=== PATIENT | female | born 1955 | race Caucasian/White ===

== ENCOUNTER → 2019-12-24 14:07 | Outpatient (CLI) | payer OTHER, SELFPAY ==
[2019-12-24 15:22] LABS: Add Manual Diff / Slide Review NO; Basophils Absolute Auto 0 /uL (0-100); Basophils Percent Auto 0.6 % (0-2); Eosinophils Absolute Auto 100 /uL (0-450); Eosinophils Percent Auto 1.3 % (2-4); Hematocrit 36.8 % (36-46); Hemoglobin 13.1 g/dL (12.0-16.0); Lymphocytes Absolute Auto 1600 /uL (1100-4500); Mean Corpuscular HGB Conc 35.7 % (30-36); Mean Corpuscular Hemoglobin 31.9 PG (26-34); Mean Corpuscular Volume 89.4 fL (80-100); Monocytes Absolute Auto 300 /uL (0-900); Monocytes Percent Auto 5.8 % (3-14); Neutrophils Absolute Auto 2500 /uL (1500-7000); Neutrophils Percent Auto 56.3 % (50-75); Platelet Count 265 X10^3/uL (150-400); Red Blood Cell Count 4.11 X10^6/uL (4.0-5.2); White Blood Cell Count 4.3 X10^3/uL (4.5-11.0)
[2019-12-24 16:53] LABS: Alanine Aminotransferase 7 IU/L (<35); Albumin 4.3 g/dL (3.5-5.0); Albumin Globulin Ratio 1.8 (1.0-2.8); Alkaline Phosphatase 52 U/L (38-126); Aspartate Aminotransferase 14 IU/L (14-36); BUN Creatinine Ratio 21.4 (6-22); Bilirubin Total 0.4 mg/dL (0.2-1.3); Blood Urea Nitrogen 12 mg/dL (7-17); Calcium 9.5 mg/dL (8.4-10.2); Carbon Dioxide 24 mmol/L (22-32); Chloride 102 mmol/L (98-107); Estimated Glomerular Filt Rate > 60.0 mL/min (>60); Globulin 2.4 g/dL (1.7-4.1); Glucose 108 mg/dL (80-110); HEMOLYSIS < 15 (0-50); Potassium 4.4 mmol/L (3.4-5.1); Sodium 134 mmol/L (137-145); Total Protein 6.7 g/dL (6.3-8.2)
[2019-12-24 17:23] LABS: TSH w/ Reflex to FT4 0.33 uIU/mL (0.47-4.68)
[2019-12-24 18:07] LABS: Free T4, Direct Thyroxine 1.24 ng/dL (0.78-2.19)
== END ==
PROVIDERS: PCP Physician Assistant; Referring Provider Physician Assistant; Visit Provider Physician Assistant
DX: R63.4 Abnormal weight loss (principal)
CPT/HCPCS: 36415; 80053; 84439; 84443; 85025

== ENCOUNTER → 2020-03-30 10:11 | Outpatient (CLI) | payer OTHER, SELFPAY ==
--- NOTE | 2020-03-30 | DI.NM.S_ITS ---
PROCEDURE: NM BONE SCAN WHOLE BODY RADIOPHARMACEUTICAL: 20.9 mCi Tc-99m MDP IV. INDICATIONS: Other specific arthropathies, not elsewhere classi TECHNIQUE: Delayed whole-body scintigrams were obtained approximately 3-4 hours after intravenous injection of radiotracer. Anterior and posterior views were acquired from vertex to feet. COMPARISON: None. FINDINGS: No suspicious tracer activity seen. There is physiologic uptake present within the bladder and kidneys. L5-S1 probable discogenic tracer uptake noted. Bilateral periarticular knee and ankle tracer uptake is probably degenerative IMPRESSION: No suspicious tracer activity Bilateral knee and ankle arthritic tracer uptake. Dictated by: Josh Gregory M.D. on 03/30/2020 at 15:42 Approved by: Josh Gregory M.D. on 03/30/2020 at 15:44
== END ==
PROVIDERS: PCP Physician Assistant; Referring Provider Orthopaedic Surgery; Visit Provider Orthopaedic Surgery
DX: M12.88 Other specific arthropathies, not elsewhere classified, other specified site (principal)
CPT/HCPCS: 78306; A9503

== ENCOUNTER → 2020-04-21 10:20 | Outpatient (CLI) | payer OTHER, SELFPAY ==
--- NOTE | 2020-04-21 10:23 | DI.CT.S_ITS ---
PROCEDURE: CT CHEST ABD PEL W CON INDICATIONS: Abnormal weight loss TECHNIQUE: After the administration of oral and intravenous contrast, 5 mm thick sections acquired from the lung apices to the symphysis. 5 mm coronal and sagittal reformats were performed, with additional 7 mm coronal MIP reformats through the lungs. For radiation dose reduction, the following was used: automated exposure control, adjustment of mA and/or kV according to patient size. COMPARISON: None. FINDINGS: Image quality: Excellent. CHEST: Lungs and pleura: No acute airspace opacities. There is mild linear scarring or atelectasis at each lung base. No pulmonary mass lesion is found No pleural effusions or pneumothorax. Central and peripheral airways appear patent and normal in caliber. Mediastinum: Heart size is normal. No pericardial effusion. No mediastinal or hilar adenopathy by size criteria. Thoracic aorta and central pulmonary arteries are normal in size. Esophagus is normal in caliber. No hiatal hernia. Chest wall: No axillary or supraclavicular adenopathy by size criteria. Thyroid gland appears normal . ABDOMEN: Solid organs: Liver is normal in size and enhancement. Gallbladder appears normal . Biliary system is non dilated. Pancreas enhances normally. Spleen is normal in size and enhancement. No adrenal nodules. Kidneys demonstrate normal size and enhancement, without hydronephrosis. Peritoneum and bowel: Bowel loops demonstrate normal wall thickness and caliber. No free fluid or air. Nodes and vessels: No retroperitoneal or mesenteric adenopathy by size criteria. Aorta and inferior vena cava are normal in size. Miscellaneous: No ventral hernias. PELVIS: Genitourinary: Bladder wall thickness is normal. Miscellaneous: No inguinal hernias or adenopathy. Bones: No suspicious bony lesions. No vertebral body compression fractures. Lumbosacral spine fusion procedure devices show no evidence of disruption or adjacent inflammation. IMPRESSION: A source of unexplained weight loss is not identified. No underlying infection or neoplasm is found. Lumbosacral spine fusion procedure, without evidence of device loosening or disruption, or adjacent inflammatory change. Dictated by: Nadir Echevarria M.D. on 04/21/2020 at 14:01 Approved by: Nadir Echevarria M.D. on 04/21/2020 at 14:14
[2020-04-21 10:52] LABS: BUN Creatinine Ratio 20.6 (6-22); Blood Urea Nitrogen 13 mg/dL (7-17); Calcium 9.3 mg/dL (8.4-10.2); Carbon Dioxide 29 mmol/L (22-32); Chloride 103 mmol/L (98-107); Estimated Glomerular Filt Rate > 60.0 mL/min (>60); Glucose 126 mg/dL (80-110); HEMOLYSIS < 15 (0-50); Sodium 140 mmol/L (137-145)
== END ==
PROVIDERS: PCP Physician Assistant; Referring Provider Physician Assistant; Visit Provider Physician Assistant
DX: R63.4 Abnormal weight loss (principal); Z98.1 Arthrodesis status
CPT/HCPCS: 36415; 71260; 74177; 80048; Q9967

== ENCOUNTER → 2020-07-09 15:20 | Outpatient (CLI) | payer OTHER, SELFPAY ==
--- NOTE | 2020-07-09 15:26 | DI.RAD.S_ITS ---
PROCEDURE: XR CERVICAL SPINE 4V OR 5V INDICATIONS: BACK PAIN TECHNIQUE: 4 views of the cervical spine were acquired, including flexion and extension views in the lateral projection. COMPARISON: [facility], ERASMO, XR LUMBAR SPINE MIN 4V, 07/09/2020, 15:31. [facility] [place], CR, SPINE CERVICAL MIN 4VW, 12/11/2016, 14:14. FINDINGS: Evaluation is partially limited by bony tail artifact. Bones: Postoperative changes are seen, with an anteriorly placed fusion device at the C4-C5 level. No findings of hardware failure or hardware loosening are seen. There is vertebral body fusion seen at C5-C6 and C6-C7. No displaced fractures are seen. No suspicious lytic or blastic lesions are seen. On the neutral image, the AP bony alignment is within normal limits. On flexion and extension views, there is highly limited range of motion observed, without abnormal subluxation. Soft tissues: Prevertebral soft tissues are normal in thickness. The visualized lung apices are unremarkable. IMPRESSION: Unremarkable postoperative fusion changes are seen. Highly limited range of motion, without abnormal subluxation. Dictated by: Roscoe Huffman M.D. on 07/09/2020 at 15:48 Approved by: Roscoe Huffman M.D. on 07/09/2020 at 15:50
--- NOTE | 2020-07-09 15:26 | DI.RAD.S_ITS ---
PROCEDURE: XR LUMBAR SPINE MIN 4V INDICATIONS: BACK PAIN TECHNIQUE: 4 views of the lumbar spine were acquired, including flexion and extension views. COMPARISON: [facility] [place], ERASMO, SPINE CERVICAL MIN 4VW, 12/11/2016, 14:14. [facility] [place], , SPINE LUMB MIN 4VW, 12/11/2016, 14:22. [facility], CT, L-SPINE WITHOUT CONTRAST, 12/14/2016, 9:33. [facility], [place], NM BONE SCAN WHOLE BODY, 03/30/2020, 14:36. [facility], CR, XR CERVICAL SPINE 4V OR 5V, 07/09/2020, 15:31. FINDINGS: Bones: Postoperative changes are seen, with bilateral pedicle screws at the L5 and S1 levels. The screws appear well placed. Vertical fixation rods are seen. Disc spacers are seen No findings of hardware failure or hardware loosening are seen. There has been removal of portions of the posterior elements. Bone grafting material is noted. 5 nonrib-bearing, lumbar type vertebral bodies are seen. No acute appearing fractures are seen. No suspicious lytic or blastic lesions can be seen. Mild dextroconvex thoracolumbar scoliotic curvature is seen. On flexion-extension views, there is limited range of motion, without abnormal subluxation. No abnormal motion can be seen within the fused region. Soft tissues: Overlying bowel gas pattern is normal. No suspicious soft tissue calcifications. IMPRESSION: Unremarkable L5-S1 postoperative hardware. Limited range of motion, without abnormal subluxation. Mild dextroconvex thoracolumbar scoliotic curvature. Dictated by: Roscoe Huffman M.D. on 07/09/2020 at 15:46 Approved by: Roscoe Huffman M.D. on 07/09/2020 at 15:48
== END ==
PROVIDERS: PCP Physician Assistant; Referring Provider Pain Medicine Pain Medicine; Visit Provider Pain Medicine Pain Medicine
DX: M96.1 Postlaminectomy syndrome, not elsewhere classified (principal); Z98.1 Arthrodesis status
CPT/HCPCS: 72050; 72110

== ENCOUNTER → 2021-04-21 14:03 | Outpatient (CLI) | payer OTHER, SELFPAY ==
[2021-04-21 14:39] LABS: Add Manual Diff / Slide Review NO; Basophils Absolute Auto 0 /uL (0-100); Basophils Percent Auto 1.3 % (0-2); Eosinophils Absolute Auto 100 /uL (0-450); Eosinophils Percent Auto 1.6 % (2-4); Hematocrit 38.8 % (36-46); Hemoglobin 13.4 g/dL (12.0-16.0); Lymphocytes Absolute Auto 1300 /uL (1100-4500); Lymphocytes Percent Auto 43.3 % (25-40); Mean Corpuscular HGB Conc 34.6 % (30-36); Mean Corpuscular Hemoglobin 31.2 PG (26-34); Mean Corpuscular Volume 90.2 fL (80-100); Monocytes Absolute Auto 200 /uL (0-900); Monocytes Percent Auto 5.7 % (3-14); Neutrophils Absolute Auto 1500 /uL (1500-7000); Neutrophils Percent Auto 48.1 % (50-75); Platelet Count 230 X10^3/uL (150-400); Red Blood Cell Count 4.31 X10^6/uL (4.0-5.2); Red Cell Distribution Width 12.5 % (11.6-14.8); White Blood Cell Count 3.1 X10^3/uL (4.5-11.0)
[2021-04-21 14:53] LABS: Alanine Aminotransferase 14 IU/L (<35); Albumin 4.4 g/dL (3.5-5.0); Albumin Globulin Ratio 1.7 (1.0-2.8); Alkaline Phosphatase 47 U/L (38-126); Aspartate Aminotransferase 19 IU/L (14-36); BUN Creatinine Ratio 19.3 (6-22); Bilirubin Total 0.5 mg/dL (0.2-1.3); Blood Urea Nitrogen 11 mg/dL (7-17); C-Reactive Protein Quant < 0.5 mg/dL (<1.0); Calcium 9.1 mg/dL (8.4-10.2); Carbon Dioxide 27 mmol/L (22-32); Chloride 101 mmol/L (98-107); Estimated Glomerular Filt Rate > 60.0 mL/min (>60); Globulin 2.6 g/dL (1.7-4.1); Glucose 95 mg/dL (80-110); HEMOLYSIS < 15 (0-50); Sodium 138 mmol/L (137-145)
[2021-04-21 14:58] LABS: Erythrocyte Sedimentation Rate 5 MM/HR (0-20)
[2021-04-21 15:05] LABS: Free T4, Direct Thyroxine 1.31 ng/dL (0.78-2.19)
[2021-04-21 15:19] LABS: Thyroid Stimulating Hormone 0.195 uIU/mL (0.47-4.68)
== END ==
PROVIDERS: PCP Internal Medicine; Referring Provider Internal Medicine; Visit Provider Internal Medicine
DX: E43 Unspecified severe protein-calorie malnutrition (principal); F32.0 Major depressive disorder, single episode, mild; G89.29 Other chronic pain; M54.59 Other low back pain
CPT/HCPCS: 36415; 80053; 84439; 84443; 85025; 85651; 86140

== ENCOUNTER → 2022-01-04 16:39 | Outpatient (CLI) | payer OTHER, SELFPAY ==
[2022-01-04 17:33] LABS: Add Manual Diff / Slide Review NO; Basophils Absolute Auto 0 /uL (0-100); Basophils Percent Auto 0.8 % (0-2); Eosinophils Absolute Auto 100 /uL (0-450); Eosinophils Percent Auto 3.1 % (2-4); Hematocrit 34.8 % (36-46); Hemoglobin 12.2 g/dL (12.0-16.0); Lymphocytes Absolute Auto 2000 /uL (1100-4500); Mean Corpuscular HGB Conc 35.1 % (30-36); Mean Corpuscular Hemoglobin 31.3 PG (26-34); Monocytes Absolute Auto 300 /uL (0-900); Neutrophils Absolute Auto 2300 /uL (1500-7000); Neutrophils Percent Auto 49.1 % (50-75); Platelet Count 264 X10^3/uL (150-400); Red Blood Cell Count 3.91 X10^6/uL (4.0-5.2); Red Cell Distribution Width 12.6 % (11.6-14.8); White Blood Cell Count 4.8 X10^3/uL (4.5-11.0)
[2022-01-04 17:38] LABS: Prothrombin Time 10.7 SECONDS (10.1-12.7)
[2022-01-04 17:47] LABS: Erythrocyte Sedimentation Rate 11 MM/HR (0-20)
[2022-01-04 17:48] LABS: Alanine Aminotransferase 14 IU/L (<35); Albumin 4.6 g/dL (3.5-5.0); Albumin Globulin Ratio 1.8 (1.0-2.8); Alkaline Phosphatase 70 U/L (38-126); Aspartate Aminotransferase 20 IU/L (14-36); BUN Creatinine Ratio 20.7 (6-22); Bilirubin Total 0.3 mg/dL (0.2-1.3); Blood Urea Nitrogen 12 mg/dL (7-17); C-Reactive Protein Quant < 0.5 mg/dL (<1.0); Calcium 9.1 mg/dL (8.4-10.2); Carbon Dioxide 29 mmol/L (22-32); Chloride 96 mmol/L (98-107); Estimated Glomerular Filt Rate > 60 mL/min (>60); Globulin 2.5 g/dL (1.7-4.1); Glucose 80 mg/dL (80-110); HEMOLYSIS < 15 (0-50); Lipase 62 U/L (23-300); Potassium 4.7 mmol/L (3.4-5.1); Sodium 133 mmol/L (137-145); Total Protein 7.1 g/dL (6.3-8.2)
[2022-01-04 18:02] LABS: Free T4, Direct Thyroxine 0.92 ng/dL (0.78-2.19)
[2022-01-04 18:16] LABS: Thyroid Stimulating Hormone 0.554 uIU/mL (0.47-4.68)
== END ==
PROVIDERS: PCP Internal Medicine; Referring Provider Internal Medicine; Visit Provider Internal Medicine
DX: R60.9 Edema, unspecified (principal); R10.9 Unspecified abdominal pain
CPT/HCPCS: 36415; 80053; 83690; 84439; 84443; 85025; 85610; 85651; 86140

== ENCOUNTER → 2022-02-06 16:44 | Outpatient (CLI) | payer OTHER, SELFPAY ==
[2022-02-06 18:16] LABS: Appearance Urine UA CLEAR; Bilirubin Urine UA NEGATIVE (NEGATIVE); Color Urine UA YELLOW; Glucose Urine UA NEGATIVE (Negative); Ketones Urine UA NEGATIVE (NEGATIVE); Leukocyte Esterase Urine UA TRACE (NEGATIVE); Nitrite Urine UA NEGATIVE (Negative); Occult Blood Urine UA NEGATIVE (Negative); Protein Urine UA NEGATIVE (Negative); Specific Gravity Urine UA <=1.005 (1.000-1.035); Urobilinogen Urine UA 0.2 E.U./dL (0.2)
[2022-02-06 18:58] LABS: pH Urine UA 6.5 (4.5-8.0)
[2022-02-06 19:06] LABS: Bacteria Urine None Seen; Culture Indicated Urine Cult Not Indicated; RBC Urine None Seen (0-5/HPF); WBC Urine None Seen (0-5/HPF)
== END ==
PROVIDERS: PCP Internal Medicine; Referring Provider Internal Medicine; Visit Provider Internal Medicine
DX: R30.0 Dysuria (principal)
CPT/HCPCS: 81001

== ENCOUNTER → 2022-02-07 09:51 | Outpatient (CLI) | payer OTHER, SELFPAY ==
[2022-02-07 11:06] LABS: Alanine Aminotransferase 11 IU/L (<35); Albumin 4.3 g/dL (3.5-5.0); Albumin Globulin Ratio 1.7 (1.0-2.8); Alkaline Phosphatase 75 U/L (38-126); Aspartate Aminotransferase 18 IU/L (14-36); BUN Creatinine Ratio 18.2 (6-22); Bilirubin Total 0.3 mg/dL (0.2-1.3); Blood Urea Nitrogen 12 mg/dL (7-17); Calcium 8.8 mg/dL (8.4-10.2); Carbon Dioxide 31 mmol/L (22-32); Chloride 86 mmol/L (98-107); Estimated Glomerular Filt Rate > 60 mL/min (>60); Globulin 2.5 g/dL (1.7-4.1); Glucose 111 mg/dL (80-110); HEMOLYSIS < 15 (0-50); Potassium 4.2 mmol/L (3.4-5.1); Sodium 128 mmol/L (137-145); Total Protein 6.8 g/dL (6.3-8.2)
[2022-02-07 11:09] LABS: NT-proBNP (BNP-Adult 18+) 196 pg/mL (<125)
== END ==
PROVIDERS: PCP Internal Medicine; Referring Provider Internal Medicine; Visit Provider Internal Medicine
DX: R60.9 Edema, unspecified (principal)
CPT/HCPCS: 36415; 80053; 83880

== ENCOUNTER → 2022-02-09 16:07 | Outpatient (CLI) | payer OTHER, SELFPAY ==
--- NOTE | 2022-02-09 16:08 | DI.ECHO.S_ITS ---
Version: 1 Study ID: [id number] [place] [address] Name: RABIA BUTLER Study Date: 02/09/2022, 4: 38 PM : 1955 BP: 101 / 57 mmHg Gender: Female Height: 64 in Age: 66 Years Weight: 115 lb BSA: 1.55 mA? Ordering: ARMANDO READ Referring: ARMANDO READ Clinician: Nura Jones Reason For Study: EDEMA History: Summary Statements Normal sinus rhythm. Normal LV size and wall thickness. Normal wall motion and left ventricular systolic function. Ejection fraction is 60-65%.Diastolic function is normal for age. Mild-moderate central tricuspid regurgitation. Otherwise no valvular abnormalities. PA systolic pressure is 37 mm Hg assuming RA pressure of 15 mm hg. No explanation for edema found. No prior study available for comparison. Procedure: A two-dimensional transthoracic echocardiogram with color flow and Doppler was performed. The study quality was technically adequate. There is no prior echocardiogram noted for this patient. The patient was in normal sinus rhythm during the exam. Left Ventricle: The left ventricle is normal in size and wall thickness. Left ventricular systolic function is normal. The ejection fraction is estimated to be 60-65%. There are no focal wall motion abnormalities. Diastolic parameters suggest probable normal left ventricular diastolic function and normal filling pressures. Right Ventricle: The right ventricle is normal in size and function. Atria: The left atrium grossly appears normal in size. The right atrium grossly appears normal in size. The interatrial septum grossly appears intact with no obvious evidence for an atrial septal defect. Mitral Valve: There is mild mitral annular calcification. There is trace mitral regurgitation. Aortic Valve: The aortic valve is normal in structure and function. No aortic regurgitation is present. Tricuspid Valve: The tricuspid valve is normal in structure and function. There is mild to moderate tricuspid regurgitation. Pulmonic Valve: The pulmonic valve is not well seen, but is grossly normal. There is no pulmonic valvular regurgitation. Great Vessels: The aortic root is normal size. The dimensions of the ascending aorta are normal. The IVC is dilated (diameter is greater than 2.1 cm) and it collapses less than 50% with a sniff. This suggests a high right atrial pressure of 15 mm Hg. Pericardium/ Pleura: There is no pericardial effusion. There is no pleural effusion. 2D and M-Mode Measurements and Calculations LVIDd: 4.7 cm LVOT diam: 1.98 cm LVIDs: 3.2 cm Ao root diam: 3.0 cm IVSd: 0.74 cm asc Aorta Diam: 3.0 cm LVPWd: 0.85 cm LV novak. diameter/BSA (cm/m^2): 3.0 LV sys. diameter/BSA (cm/m^2): 2.04 TAPSE: 1.92 cm IVC diam: 2.13 cm LA A4 area: 11.2 dental practitioner? RA area: 10.1 dental practitioner? LA length (vol): 3.7 cm RA long axis: 3.7 cm RA vol: 23.5 ml RA : 15.2 ml/mA? Doppler Measurements and Calculations Ao V2 max: 120.9 cm/sec LVOT Max Wilder: 95.6 cm/sec Ao V2 mean: 82.4 cm/sec LV V1 max P.7 mmHg Ao V2 VTI: 21.2 cm LV V1 VTI: 17.9 cm Ao max P.9 mmHg Ao mean P.0 mmHg GERALDO(I,D): 2.6 dental practitioner? GERALDO(V,D): 2.42 dental practitioner? GERALDO indexed to BSA (cm^2/m^2): 1.68 sev ratio: 0.85 MV E max wilder: 80.5 cm/sec MV dec time: 0.18 sec MV A max wilder: 95.2 cm/sec MV E/A: 0.85 Med Peak E' Wilder: 9.7 cm/sec Lat Peak E' Wilder: 11.7 cm/sec E/e' average: 7.6 TR max wilder: 255.9 cm/sec TR max P.2 mmHg Electronically signed by: Tatianna Sosa M.D. 02/09/2022, 7: 58 PM
== END ==
PROVIDERS: PCP Internal Medicine; Referring Provider Internal Medicine; Visit Provider Internal Medicine
DX: I07.1 Rheumatic tricuspid insufficiency (principal); R60.9 Edema, unspecified; R10.9 Unspecified abdominal pain
CPT/HCPCS: 93306

== ENCOUNTER → 2022-02-12 09:10 | Outpatient (CLI) | payer OTHER, SELFPAY ==
--- NOTE | 2022-02-12 09:11 | DI.CT.S_ITS ---
PROCEDURE: CT ABDOMEN PELVIS W CON INDICATIONS: ascites/pelvic pain TECHNIQUE: After the administration of intravenous contrast, axial sections acquired from the lung bases to the pubic symphysis. Coronal and sagittal reformats were performed. For radiation dose reduction, the following was used: automated exposure control, adjustment of mA and/or kV according to patient size. COMPARISON: None. FINDINGS: Lower thorax: The lung bases are clear. Heart size normal. No hiatal hernia. Liver: Normal in size and attenuation. No contour deformity present. Biliary system: No calcified cholelithiasis or pericholecystic inflammation. No intra or extrahepatic bile duct dilatation. Pancreas: Unremarkable without mass or inflammation evident. Spleen: Normal in size and density. Adrenals: Normal morphology and density. Reproductive system: Unremarkable as visualized. Urinary system: Normal renal size and attenuation. No renal calculi, hydronephrosis, or solid mass present. Urinary bladder unremarkable. Gastrointestinal system: The bowel is unremarkable without evidence of bowel obstruction or inflammation. The stomach appears unremarkable. Moderate fecal debris throughout the colon Appendix: No findings to suggest acute appendicitis. Peritoneal spaces: No mesenteric or retroperitoneal adenopathy. No free air. No free fluid. Vasculature: Aortic atherosclerotic vascular calcification noted without evidence of aneurysm. Abdominal wall: Abdominal wall intact without evidence of ventral or inguinal hernias. Musculoskeletal: Normal bone mineralization. Degenerative disc disease and arthropathy noted in lower lumbar spine. L5 decompressive laminectomy with L5-S1 interbody fusion associated posterior mildred and screw instrumentation. No acute fractures. IMPRESSION: 1. Moderate fecal debris throughout the colon without evidence of obstruction. No ascites. 2. Lower lumbar spine decompression, fusion and instrumentation Approved by: Tyler Scanlon M.D. on 02/12/2022 at 11:52
== END ==
PROVIDERS: PCP Internal Medicine; Referring Provider Internal Medicine; Visit Provider Internal Medicine
DX: R10.2 Pelvic and perineal pain (principal); R18.8 Other ascites; R60.9 Edema, unspecified; E43 Unspecified severe protein-calorie malnutrition; M51.36 Other intervertebral disc degeneration, lumbar region; M47.816 Spondylosis without myelopathy or radiculopathy, lumbar region; Z98.1 Arthrodesis status
CPT/HCPCS: 74177

== ENCOUNTER → 2022-02-16 12:57 | Outpatient (CLI) | payer OTHER, SELFPAY ==
[2022-02-16 14:10] LABS: BUN Creatinine Ratio 20.6 (6-22); Blood Urea Nitrogen 13 mg/dL (7-17); Calcium 8.9 mg/dL (8.4-10.2); Carbon Dioxide 31 mmol/L (22-32); Chloride 94 mmol/L (98-107); Estimated Glomerular Filt Rate > 60 mL/min (>60); Glucose 98 mg/dL (80-110); HEMOLYSIS < 15 (0-50); Potassium 4.3 mmol/L (3.4-5.1); Sodium 131 mmol/L (137-145)
== END ==
PROVIDERS: PCP Internal Medicine; Referring Provider Internal Medicine; Visit Provider Internal Medicine
DX: R60.9 Edema, unspecified (principal)
CPT/HCPCS: 36415; 80048

== ENCOUNTER → 2023-04-26 15:12 | Outpatient (CLI) | payer OTHER, SELFPAY ==
--- NOTE | 2023-04-26 15:15 | DI.RAD.S_ITS ---
PROCEDURE: XR HIP W PEL IF DONE LT 2V INDICATIONS: left hip pain TECHNIQUE: AP pelvis with lateral view(s) of the left hip(s). COMPARISON: None. FINDINGS: Bones: The femoral head appears intact on the 2 given views. Questionable nondisplaced fracture lines along the proximal superior and mid inferior left pubic rami. Surgical changes are present in the lumbosacral spine. Bone alignment appears normal. No suspicious bony lesions. Soft tissues: The visualized bowel gas pattern is normal. No suspicious soft tissue calcifications. IMPRESSION: 1. Findings suspicious for nondisplaced left pelvic ring fractures. CT or MR for confirmation is recommended if there is no symptom improvement with conservative management. Dictated by: Joceline Hutchins M.D. on 04/26/2023 at 16:56 Approved by: Joceline Hutchins M.D. on 04/26/2023 at 16:58
== END ==
PROVIDERS: PCP Internal Medicine; Referring Provider Internal Medicine; Visit Provider Internal Medicine
DX: M25.552 Pain in left hip (principal)
CPT/HCPCS: 73502